=== PATIENT | male | born 1955 | race Caucasian/White ===

== ENCOUNTER 2021-02-22 12:17 | Emergency (ER) | payer BC ==
--- NOTE | 2021-02-22 13:09 | ED ---
General Adult HPI - General Stated complaint: cough/wants covid test Source: patient, RN notes reviewed Mode of arrival: ambulatory Limitations: no limitations - History of Present Illness Initial comments: 65-year-old male presents emergency Department requesting COVID-19 testing. Patient states that his son tested positive. Patient states he is a slight cough but daughter wishes ALLERGIES. Patient states that he was around each other for a wedding. Patient denies any fevers chills no headache bodyaches no nausea vomiting. - Related Data Allergies Allergy/AdvReac Type Severity Reaction Status Date / Time No Known Allergies Allergy Verified 02/22/21 13:07 Review of Systems ROS Statement: Those systems with pertinent positive or pertinent negative responses have been documented in the HPI. ROS Other: All systems not noted in ROS Statement are negative. Past Medical History Past Medical History: Diabetes Mellitus, Hyperlipidemia, Hypertension History of Any Multi-Drug Resistant Organisms: None Reported Past Surgical History: Tonsillectomy Past Anesthesia/Blood Transfusion Reactions: No Reported Reaction Past Psychological History: No Psychological Hx Reported Past Alcohol Use History: None Reported General Exam General appearance: alert, in no apparent distress Head exam: Present: atraumatic, normocephalic, normal inspection Eye exam: Present: normal appearance, PERRL, EOMI. Absent: scleral icterus, conjunctival injection, periorbital swelling ENT exam: Present: normal exam, mucous membranes moist Neck exam: Present: normal inspection, full ROM. Absent: tenderness, meningismus, lymphadenopathy Respiratory exam: Present: normal lung sounds bilaterally. Absent: respiratory distress, wheezes, rales, rhonchi, stridor Cardiovascular Exam: Present: regular rate, normal rhythm, normal heart sounds. Absent: systolic murmur, diastolic murmur, rubs, gallop, clicks GI/Abdominal exam: Present: soft, normal bowel sounds. Absent: distended, tenderness, guarding, rebound, rigid Neurological exam: Present: alert, oriented X3 Course Vital Signs 02/22/21 13:08 Temperature 98.7 F Pulse Rate 109 H Respiratory 18 Rate Blood Pressure 129/77 O2 Sat by Pulse 99 Oximetry Medical Decision Making - Medical Decision Making Patient is positive for covid 19. Patient will receive monoclonal antibodies. Patient is stable, no signs of stress we discharged for stable condition - Lab Data Lab Results 02/22/21 Range/Units 13:11 Coronavirus (PCR) Detected A (Not Detectd) Disposition Clinical Impression: COVID-19 Disposition: HOME SELF-CARE Condition: Stable Additional Instructions: Please return to the Emergency Department if symptoms worsen or any other concerns. Is patient prescribed a controlled substance at d/c from ED?: No Referrals: Juanito Peck Jr, DO [Primary Care Provider] - 1-2 days Time of Disposition: 13:54
[2021-02-22 13:10] VITALS: BP 129/77; PULSE 109; RESP 18; TEMP 98.7
[2021-02-22] MEDS ORDERED: SODIUM CHLORIDE 0.9% 50 ML IVPB ONE (14:15)
[2021-02-22] MEDS ORDERED: CASIRIVIMAB (REGN10933) (EUA) 600 MG, IMDEVIMAB (REGN10987) (EUA) 600 MG in SODIUM CHLO... IVPB ONE (14:15)
== END 2021-02-22 16:50 | disposition home or self-care (01) ==
LOC: EC 12:17
DX: U07.1 COVID-19 (principal); I10 Essential (primary) hypertension; E11.9 Type 2 diabetes mellitus without complications; E78.5 Hyperlipidemia, unspecified
CPT/HCPCS: 99283; 87635; Q0243; 96361